=== PATIENT | female | born 1995 | race Caucasian/White ===

== ENCOUNTER 2022-03-31 08:00 | Outpatient (CLI) | payer OTHER ==
[2022-03-31 15:25] LABS: BILIRUBIN,URINE NEGATIVE (NEGATIVE); GLUCOSE, URINE (UA) NEGATIVE (NEGATIVE); KETONES,URINE (UA) NEGATIVE (NEGATIVE); LEUKOCYTE ESTERASE, URINE NEGATIVE (NEGATIVE); NITRITE,URINE NEGATIVE (NEGATIVE); OCCULT BLOOD,URINE NEGATIVE (NEGATIVE); PROTEIN,URINE NEGATIVE (NEGATIVE); UROBILINOGEN,URINE 0.2 (NORMAL) E.U./dL (NORMAL)
[2022-03-31 15:51] LABS: CLARITY,URINE CLOUDY (CLEAR)
[2022-03-31 15:52] LABS: AMORPHOUS SEDIMENT,UR Marked /LPF; BACTERIA,URINE None Seen /HPF (None Seen); RBC,URINE None Seen /HPF (0-5); SQUAMOUS EPITHELIAL CELL,UR RARE Squamous (<= Few); WBC,URINE 0-3 /HPF (0-5)
== END 2022-03-31 23:59 | disposition home or self-care (01) ==
LOC: LAB.WC 08:00
PROVIDERS: ATTEND Obstetrics & Gynecology
DX: Z32.01 Encounter for pregnancy test, result positive (principal)
CPT/HCPCS: 81001; 87086

== ENCOUNTER 2022-04-07 13:01 | Outpatient (CLI) | payer OTHER ==
--- NOTE | 2022-04-09 05:27 | Ultrasound Report ---
PROCEDURE: OB First Trimester INDICATIONS: Positive test OUTSIDE/PRIOR DATING DATA: Last menstrual period (LMP): Not available. LMP-based estimated date of delivery (BRO): Not available. First dating scan (date and location): 04/07/2022 at [facility]. Estimated date of delivery (BRO) from first dating scan: 10/05/2022.. TECHNIQUE: Real-time scanning was performed of the fetus and maternal pelvic organs, with image documentation. COMPARISON: None. FINDINGS: There is a single living intrauterine gestation. The estimated gestational age is 14 weeks 1 day based on crown-rump length. cardiac activity is present with heart rate 144 BPM. Measurement variability in dating: +/- 4 weeks by LMP, +/- 7 days by mean sac diameter (use before 6 weeks gestation if crown-rump length not able to be measured), +/- 5 days by crown-rump length (6-12 weeks gestation). Maternal organs: Ovaries are not well visualized. No adnexal mass or free fluid. IMPRESSION: 1. A single living IUP with the estimated gestational age 14 weeks 1 day, corresponding to ultrasound BRO 10/05/2022. Reviewed by: Abhilash Vargas MD on 04/07/2022 5:59 PM PDT Approved by: Abhilash Vargas MD on 04/07/2022 5:59 PM PDT Station ID: [id number]
== END 2022-04-07 13:02 | disposition home or self-care (01) ==
LOC: DI 13:01
PROVIDERS: ATTEND Obstetrics & Gynecology
DX: Z32.01 Encounter for pregnancy test, result positive (principal)

== ENCOUNTER 2022-04-08 12:28 | Outpatient (CLI) | payer OTHER ==
[2022-04-08 12:55] LABS: BASOPHILS % (AUTO) 0.3 %; EOSINOPHILS # (AUTO) 0.1 10^3/uL (0.0-0.7); EOSINOPHILS % (AUTO) 1.2 %; HCT - HEMATOCRIT 36.6 % (37.0-47.0); HGB - HEMOGLOBIN 12.4 g/dL (12.0-16.0); LYMPHOCYTES # (AUTO) 1.5 10^3/uL (1.5-3.5); LYMPHOCYTES % (AUTO) 22.6 %; MEAN CORPUSCULAR HEMOGLOBIN 30.6 pg (27.0-31.0); MEAN CORPUSCULAR HGB CONC 33.9 g/dL (32.0-36.0); MEAN CORPUSCULAR VOLUME 90.4 fL (81.0-99.0); MEAN PLATELET VOLUME 10.1 fL (7.9-10.8); MONOCYTES # (AUTO) 0.4 10^3/uL (0.0-1.0); MONOCYTES % (AUTO) 6.4 %; NEUTROPHILS # (AUTO) 4.7 10^3/uL (1.5-6.6); NEUTROPHILS % (AUTO) 69.4 %; PLT - PLATELET COUNT 230 10^3/uL (130-450); RED BLOOD COUNT 4.05 10^6/uL (4.20-5.40); RED CELL DISTRIBUTION WIDTH 13.2 % (12.0-15.0); WHITE BLOOD COUNT 6.7 x10^3/uL (4.8-10.8)
[2022-04-09 03:08] LABS: HBsAG SCREEN Negative (Negative)
[2022-04-09 04:09] LABS: RPR Non Reactive (Non Reactive)
[2022-04-09 05:12] LABS: HCV AB <0.1 s/co ratio (0.0-0.9); HIV SCREEN 4TH GENERATION Non Reactive (Non Reactive)
[2022-04-09 12:09] LABS: VARICELLA-ZOSTER AB IGG 189 index (Immune >165)
== END 2022-04-08 12:29 | disposition home or self-care (01) ==
LOC: LAB 12:28
PROVIDERS: ATTEND Obstetrics & Gynecology
DX: Z36.89 Encounter for other specified antenatal screening (principal)
CPT/HCPCS: 36415; 85025; 86592; 86762; 86787; 86803; 86850; 86900; 86901; 87340; 87389

== ENCOUNTER 2022-04-08 14:59 | Outpatient (CLI) | payer OTHER ==
[2022-04-08 23:50] LABS: CHLAMYDIA TRACHOMATIS DNA NEGATIVE (NEGATIVE); NEISSERIA GONORRHOEAE DNA NEGATIVE (NEGATIVE); TRICHOMONAS VAGINALIS DNA NEGATIVE (NEGATIVE)
== END 2022-04-08 15:00 | disposition home or self-care (01) ==
LOC: LAB 14:59
PROVIDERS: ATTEND Obstetrics & Gynecology
DX: Z34.90 Encounter for supervision of normal pregnancy, unspecified, unspecified trimester (principal); Z36.89 Encounter for other specified antenatal screening
CPT/HCPCS: 87491; 87591; 87661

== ENCOUNTER 2022-05-06 14:18 | Outpatient (CLI) | payer OTHER ==
[2022-05-11 19:07] LABS: AFP MOM 1.01 (.); AFP VALUE 45.2 ng/mL (.); DIA MOM 0.96 (.); DIA VALUE 145.91 pg/mL (.); DSR (BY AGE) 1 IN 857 (.); DSR (SECOND TRIMESTER) 1 IN 9332 (.); GEST. AGE ON COLLECTION DATE 18.3 WEEKS (.); GESTAT. AGE METHOD EDD (.); HCG MOM 1.32 (.); HCG VALUE 37440 mIU/mL (.); INSULIN DEP DIABETES No (.); MULTIPLE GESTATION No (.); OPEN SPINA BIFIDA RISK 1 IN 10000 (.); RACE Caucasian (.); RESULTS Report (.); TEST RESULTS *Screen Negative* (.); TRISOMY 18 RISK Not increased (.); UE3 MOM 1.39 (.); UE3 VALUE 2.16 ng/mL (.); WEIGHT 163 lbs (.)
== END 2022-05-06 14:19 | disposition home or self-care (01) ==
LOC: LAB 14:18
PROVIDERS: ATTEND Obstetrics & Gynecology
DX: Z34.90 Encounter for supervision of normal pregnancy, unspecified, unspecified trimester (principal)
CPT/HCPCS: 36415; 81511

== ENCOUNTER 2022-05-14 09:38 | Emergency (ER) | payer OTHER ==
--- NOTE | 2022-05-14 10:05 | ED Physician Documentation ---
PD HPI CHEST PAIN - Stated complaint Stated Complaint: CHEST PX/BACK PX - Chief complaint Chief Complaint: Cardiac - History obtained from History obtained from: Patient - History of Present Illness Timing - onset: How many hours ago (couple), Today Timing - onset during: Light activity (was sitting at desk doing computer work. Onset of left chest to shoulder pressure/aching pain. No dyspnea. No lightheaded. No recent illness. no noted injury. Called nurse line and told to come to ER.) Timing - duration: Minutes Timing - details: Abrupt onset, Still present (though much improved.) Quality: Tightness, Aching. No: Pressure Location: Left chest, Left shoulder/arm Radiation: No: Jaw, Neck, Back Improved by: No: Rest Worsened by: Movement. No: Inspiration, Palpation Associated symptoms: No: Shortness of air, Diaphoresis, Nausea, Feeling faint / dizzy, Palpitations, Cough Similar symptoms before: Has not had sx before Recently seen: Clinic (normal visits so far.) Review of Systems Constitutional: denies: Fever, Chills Nose: denies: Rhinorrhea / runny nose, Congestion Throat: denies: Sore throat Cardiac: denies: Palpitations, Pedal edema, Calf pain Respiratory: denies: Dyspnea, Cough, Wheezing GI: denies: Abdominal Pain, Nausea (not currently. Had had moderate amount earlier in .), Vomiting, Diarrhea : reports: Now EGA (19-20). denies: Dysuria, Frequency, Vaginal bleeding Skin: denies: Rash, Lesions Musculoskeletal: denies: Extremity pain, Extremity swelling Neurologic: denies: Generalized weakness, Focal weakness, Numbness, Near syncope PD PAST MEDICAL HISTORY - Past Medical History Cardiovascular: None Respiratory: None Neuro: None Endocrine/Autoimmune: None - Present Medications Home Medications: Ambulatory Orders Medication Instructions Recorded Confirmed No122/Iron/Folic Acid 1 each PO DAILY 05/14/22 05/14/22 [ Multi Tablet] - Allergies Allergies/Adverse Reactions: Allergies Allergy/AdvReac Type Severity Reaction Status Date / Time No Known Drug Allergies Allergy Verified 05/14/22 09:53 PD ED PE NORMAL - Vitals Vital signs reviewed: Yes - General General: Alert and oriented X 3, No acute distress, Well developed/nourished - HEENT HEENT: Pharynx benign - Neck Neck: Supple, no meningeal sign, No adenopathy - Cardiac Cardiac: RRR, No murmur - Respiratory Respiratory: No respiratory distress, Clear bilaterally - Abdomen Abdomen: Soft, Non tender - Female Female : Deferred - Derm Derm: Normal color, Warm and dry, No rash - Extremities Extremities: Normal ROM s pain, No edema, No calf tenderness / cord - Neuro Neuro: Alert and oriented X 3, No motor deficit, Normal speech Results - Vitals Vitals: Vital Signs - 24 hr 05/14/22 05/14/22 05/14/22 09:47 12:00 12:51 Temperature 36.5 C 37.0 C Heart Rate 78 74 75 Respiratory 16 18 20 Rate Blood Pressure 102/61 98/56 L 84/58 L O2 Saturation 100 99 100 Oxygen O2 Source Room air - EKG (time done) 09:49 Rate: Rate (enter#) (76) Rhythm: NSR [place]: Normal Intervals: Normal MI QRS: Normal Ischemia: Normal ST segments. No: ST elevation c/w ischemia, ST depression - Labs Labs: Laboratory Tests 05/14/22 05/14/22 05/14/22 10:56 10:56 10:56 WBC 6.1 RBC 3.55 L Hgb 10.9 L Hct 32.7 L MCV 92.1 MCH 30.7 MCHC 33.3 RDW 12.8 Plt Count 217 MPV 10.1 Neut # (Auto) 4.2 Lymph # (Auto) 1.3 L [place] # (Auto) 0.5 Eos # (Auto) 0.1 Baso # (Auto) 0.0 Absolute Nucleated RBC 0.00 Nucleated RBC % 0.0 Sodium 135 Potassium 3.8 Chloride 104 Carbon Dioxide 26 Anion Gap 5.0 L BUN 10 Creatinine 0.5 Estimated GFR (MDRD) 148 Glucose 71 Calcium 8.8 Total Bilirubin 0.3 AST 18 ALT 11 Alkaline Phosphatase 35 L Troponin I High Sens < 2.3 L B-Natriuretic Peptide Total Protein 6.0 L Albumin 3.0 L Globulin 3.0 Albumin/Globulin Ratio 1.0 Lipase 46 05/14/22 10:56 WBC RBC Hgb Hct MCV MCH MCHC RDW Plt Count MPV Neut # (Auto) Lymph # (Auto) [place] # (Auto) Eos # (Auto) Baso # (Auto) Absolute Nucleated RBC Nucleated RBC % Sodium Potassium Chloride Carbon Dioxide Anion Gap BUN Creatinine Estimated GFR (MDRD) Glucose Calcium Total Bilirubin AST ALT Alkaline Phosphatase Troponin I High Sens B-Natriuretic Peptide 73 Total Protein Albumin Globulin Albumin/Globulin Ratio Lipase - Rads (name of study) chest xray Radiology: Prelim report reviewed (with abd shielded: No acute heart/lung process.), See rad report PD MEDICAL DECISION MAKING - ED course Complexity details: reviewed results, considered differential (nonpleuritic left shoulher/upper chest discomfort. Perc zero. CXR and ECG okay. labs good. Presume musculoskeletal pain. ), d/w patient Departure - Departure Disposition: Home, Self Care Clinical Impression: Chest discomfort Qualifiers: Weeks of gestation: 19 weeks Qualified Code(s): Z3A.19 - 19 weeks gestation of Condition: Stable Record reviewed to determine appropriate education?: Yes Instructions: ED Chest Pain Atypical Unkn Cause Comments: Your chest x-ray, EKG, blood tests are normal without any signs of heart or lung abnormality. No signs of heart strain or muscle injury with the BNP and troponin tests. Clinically low suspicion for blood clots. You are slightly anemic but that is fairly common with . Presume the possibility of muscular injury. You can use Tylenol every 4-6 hours if needed for pains. For another week or 2 you still could use ibuprofen 2 or 3 times daily. It suggested not to use it over 20 to 22 weeks of . Potentially this could be early muscular inflammation signaling of a impending viral illness. As such if you do develop a little bit of a runny nose cough or sore throat in the next day or 2 then that could make sense. Recheck if persistent symptoms more than a couple of days or if you have increasing discomfort, trouble breathing, hurts with breathing, lightheaded or other concerns. Your blood pressure was relatively low here. I do not know what its been running overall but was just about 100s systolic. Make sure you stay well- hydrated. Discharge Date/Time: 05/14/22 12:55
[2022-05-14] MEDS ORDERED: ACETAMINOPHEN 325 MG TABLET PO STA (10:47)
[2022-05-14] MEDS ORDERED: SODIUM CHLORIDE 0.9% 1,000 ML IV STA (10:47)
[2022-05-14] MEDS ORDERED: KETOROLAC 15 MG/ML VIAL IVP STA (10:47)
[2022-05-14 11:01] LABS: BASOPHILS % (AUTO) 0.3 %; EOSINOPHILS # (AUTO) 0.1 10^3/uL (0.0-0.7); HCT - HEMATOCRIT 32.7 % (37.0-47.0); HGB - HEMOGLOBIN 10.9 g/dL (12.0-16.0); LYMPHOCYTES # (AUTO) 1.3 10^3/uL (1.5-3.5); LYMPHOCYTES % (AUTO) 21.4 %; MEAN CORPUSCULAR HEMOGLOBIN 30.7 pg (27.0-31.0); MEAN CORPUSCULAR HGB CONC 33.3 g/dL (32.0-36.0); MEAN CORPUSCULAR VOLUME 92.1 fL (81.0-99.0); MEAN PLATELET VOLUME 10.1 fL (7.9-10.8); MONOCYTES # (AUTO) 0.5 10^3/uL (0.0-1.0); MONOCYTES % (AUTO) 7.9 %; NEUTROPHILS # (AUTO) 4.2 10^3/uL (1.5-6.6); NEUTROPHILS % (AUTO) 69.1 %; PLT - PLATELET COUNT 217 10^3/uL (130-450); RED BLOOD COUNT 3.55 10^6/uL (4.20-5.40); RED CELL DISTRIBUTION WIDTH 12.8 % (12.0-15.0); WHITE BLOOD COUNT 6.1 x10^3/uL (4.8-10.8)
[2022-05-14 11:19] LABS: BILIRUBIN,TOTAL 0.3 mg/dL (0.2-1.0); CALCIUM 8.8 mg/dL (8.5-10.3); CREATININE 0.5 mg/dL (0.4-1.0); POTASSIUM 3.8 mmol/L (3.5-5.0)
--- NOTE | 2022-05-14 11:42 | XRAY Report ---
PROCEDURE: Chest 1 View X-Ray INDICATIONS: chest pain/tightness this morning. left upper. TECHNIQUE: One view of the chest was acquired. COMPARISON: None. FINDINGS: Surgical changes and devices: None. Lungs and pleura: No pleural effusions or pneumothorax. Lungs are clear. Mediastinum: Mediastinal contours appear normal. Heart size is normal. Bones and chest wall: No suspicious bony lesions. Overlying soft tissues appear unremarkable. IMPRESSION: No acute cardiopulmonary abnormality. Reviewed by: Quoc Zarco MD on 05/14/2022 11:41 AM PDT Approved by: Quoc Zarco MD on 05/14/2022 11:41 AM PDT Station ID: [id number]
[2022-05-14 12:55] VITALS: BP 84/58
== END 2022-05-14 12:55 | disposition home or self-care (01) ==
LOC: ED 09:38
DX: O99.891 Other specified diseases and conditions complicating pregnancy (principal); R07.89 Other chest pain; Z3A.19 19 weeks gestation of pregnancy
CPT/HCPCS: 36415; 71045; 80053; 83690; 83880; 84484; 85025; 93005; 96361; 96374; 99284; A9270

== ENCOUNTER 2022-05-17 10:03 | Outpatient (CLI) | payer OTHER ==
--- NOTE | 2022-05-17 11:51 | Ultrasound Report ---
PROCEDURE: OB Detailed Eval INDICATIONS: SUPERVISION OF OUTSIDE/PRIOR DATING DATA: LMP is unknown First dating scan (date and location): 04/07/2022. Estimated date of delivery (BRO) from first dating scan: 10/05/2022. TECHNIQUE: Real-time scanning was performed of the fetus, with image documentation and biometric measurements. Endovaginal scanning: Not performed COMPARISON: 04/07/2022 FINDINGS: General: A single living intrauterine gestation is present. Presentation: Variable, usually cephalic Placenta: Placental position is posterior, without previa. Amniotic fluid index: Within normal limits cm, 43rd percentile for gestational age. heart rate: 147 beats per minute. Maternal cervical canal: 3.6 cm long; normal length is 2.5 cm or more. biometrics: Biparietal diameter: 4.7 cm Head circumference: 17.5 cm Abdominal circumference: 14.1 cm Femur length: 3.2 cm Estimated gestational age from initial scan: 19 weeks and 6 days Composite gestational age from present scan: 19 weeks and 1 day Estimated weight and percentile: 307 g, 36 percentile Measurement variability in biometric dating: +/- 10 days from 12-20 weeks gestation, +/- 2 weeks from 20-30 weeks gestation, +/- 3 weeks at 30 weeks gestation or later. Anatomic survey: Neuro: Ventricles are normal at less than 10 mm. Cisterna magna is normal at 3-11 mm. Cerebellum is normal in size and morphology. Nuchal skin fold: Normal at less than 6 mm between 14 and 20 weeks gestational age. Face: Nose and lips, facial profile are normal. Spine: No evidence for spina bifida. Heart: 4-chambered heart is present, with normal ventricular outflow tracts. Diaphragm: Diaphragm is intact. Stomach: Left-sided stomach is present. Kidneys: Borderline normal left renal pelvis diameter at 4 mm. Normal is less than 5 mm in 2nd trime ster, less than 7 mm in 3rd trimester. Cord: 3 vessel cord has orthotopic insertion. Bladder: Normal in size. Extremities: All 4 extremities are visualized. IMPRESSION: Intrauterine with BRO at 10/05/2022. Sonographic biometry today is concordant, with EFW at t he 36th percentile. Borderline normal left renal pelvis diameter of 4 mm. Complete and normal routine anatomic survey. Reviewed by: Wilbur Matute MD on 05/17/2022 11:50 AM PDT Approved by: Wilbur Matute MD on 05/17/2022 11:50 AM PDT Station ID: [id number]
== END 2022-05-17 10:04 | disposition home or self-care (01) ==
LOC: DI 10:03
PROVIDERS: ATTEND Obstetrics & Gynecology
DX: Z36.89 Encounter for other specified antenatal screening (principal)

== ENCOUNTER 2022-06-04 15:43 | Outpatient (CLI) | payer OTHER ==
[2022-06-04 17:51] LABS: BILIRUBIN,URINE NEGATIVE (NEGATIVE); GLUCOSE, URINE (UA) NEGATIVE (NEGATIVE); KETONES,URINE (UA) NEGATIVE (NEGATIVE); LEUKOCYTE ESTERASE, URINE NEGATIVE (NEGATIVE); NITRITE,URINE NEGATIVE (NEGATIVE); OCCULT BLOOD,URINE NEGATIVE (NEGATIVE); PROTEIN,URINE NEGATIVE (NEGATIVE); UROBILINOGEN,URINE 0.2 (NORMAL) E.U./dL (NORMAL)
[2022-06-04 18:03] LABS: AMORPHOUS SEDIMENT,UR Moderate /LPF; BACTERIA,URINE Rare /HPF (None Seen); CLARITY,URINE SL. CLOUDY (CLEAR); RBC,URINE 0-5 /HPF (0-5); SQUAMOUS EPITHELIAL CELL,UR RARE Squamous (<= Few); WBC,URINE 0-3 /HPF (0-5)
== END 2022-06-04 15:44 | disposition home or self-care (01) ==
LOC: LAB.N 15:43
PROVIDERS: ATTEND Obstetrics & Gynecology
DX: R10.9 Unspecified abdominal pain (principal)
CPT/HCPCS: 81001; 87086

== ENCOUNTER 2022-06-23 12:50 | Emergency (ER) | payer OTHER ==
[2022-06-23 13:56] LABS: BASOPHILS % (AUTO) 0.3 %; EOSINOPHILS # (AUTO) 0.1 10^3/uL (0.0-0.7); EOSINOPHILS % (AUTO) 1.4 %; HCT - HEMATOCRIT 31.5 % (37.0-47.0); HGB - HEMOGLOBIN 10.4 g/dL (12.0-16.0); LYMPHOCYTES # (AUTO) 1.3 10^3/uL (1.5-3.5); LYMPHOCYTES % (AUTO) 19.9 %; MEAN CORPUSCULAR HEMOGLOBIN 30.1 pg (27.0-31.0); MEAN CORPUSCULAR VOLUME 91.3 fL (81.0-99.0); MEAN PLATELET VOLUME 9.8 fL (7.9-10.8); MONOCYTES # (AUTO) 0.6 10^3/uL (0.0-1.0); MONOCYTES % (AUTO) 8.9 %; NEUTROPHILS # (AUTO) 4.5 10^3/uL (1.5-6.6); NEUTROPHILS % (AUTO) 69.2 %; PLT - PLATELET COUNT 186 10^3/uL (130-450); RED BLOOD COUNT 3.45 10^6/uL (4.20-5.40); RED CELL DISTRIBUTION WIDTH 12.6 % (12.0-15.0); WHITE BLOOD COUNT 6.5 x10^3/uL (4.8-10.8)
[2022-06-23 14:10] LABS: ALBUMIN 3.1 g/dL (3.2-5.5); BILIRUBIN,TOTAL 0.4 mg/dL (0.2-1.0); CALCIUM 8.9 mg/dL (8.5-10.3); CREATININE 0.4 mg/dL (0.4-1.0); TOTAL PROTEIN 6.2 g/dL (6.7-8.2)
--- NOTE | 2022-06-23 16:05 | Ultrasound Report ---
PROCEDURE: Abdomen Limited INDICATIONS: right upper abd pain TECHNIQUE: Real-time scanning was performed of the abdominal and retroperitoneal organs, with image documentatio n. COMPARISON: None. FINDINGS: Liver: Liver is normal in size and homogeneous in echotexture. Gallbladder: No stones. Gallbladder is contracted with wall thickness measuring 2.6 mm. Biliary ducts: Intrahepatic bile ducts are non-dilated. Extrahepatic bile duct caliber measures 3 m m. Normal is 6-7 mm or less in diameter, or 10 mm or less post-cholecystectomy. Pancreas: Visualized portions of the pancreas are sonographically normal. Kidneys: Right kidney measures 10.7 cm long. No hydronephrosis or nephrolithiasis. No solid masses . Miscellaneous: No free abdominal fluid. IMPRESSION: Gallbladder is unremarkable. Reviewed by: Elham Tillman MD on 06/23/2022 4:04 PM PST Approved by: Elham Tillman MD on 06/23/2022 4:04 PM PST Station ID: [id number]
--- NOTE | 2022-06-23 16:30 | ED Physician Documentation ---
PD HPI ABD PAIN - Stated complaint Stated Complaint: 25 WEEKS/BACK PX - Chief complaint Chief Complaint: Abd Pain - History obtained from History obtained from: Patient - History of Present Illness Timing - onset: How many weeks ago (few weeks of pain RUQ abd, worse with movement, palpation. no change with eating nor simpoe breathing. Has increased in intensity but staying same location the past few days.) Timing - details: Gradual onset, Waxing and waning Quality: Aching, Pain Location: RUQ (she feels that it is a pain on surface or soft tissue and not a deep pain. no change with eating, but does worsen with movement and palpation.) Radiation: No: Chest, Right flank, Upper back Improved by: Laying still. No: Eating Worsened by: Moving, Palpation. No: Eating Associated symptoms: Other (no rash nor sores.). No: Fever, Nausea, Vomiting, Dysuria, Loss of appetite Similar symptoms before: No diagnosis (had similar symptoms with first for last couple months of it. felt to be muscular or such. Normal labs at that time.) Recently seen: Clinic (OB clinic with normal visits.) Review of Systems Constitutional: denies: Fever, Chills Nose: denies: Rhinorrhea / runny nose, Congestion Throat: denies: Sore throat Respiratory: denies: Cough GI: reports: Abdominal Pain. denies: Nausea, Vomiting, Diarrhea : reports: Now EGA (25 weeks, with normal course so far.) Skin: denies: Rash, Lesions Musculoskeletal: denies: Extremity swelling Neurologic: denies: Focal weakness, Numbness PD PAST MEDICAL HISTORY - Past Medical History Cardiovascular: None Respiratory: None Neuro: None Endocrine/Autoimmune: None - Present Medications Home Medications: Ambulatory Orders Medication Instructions Recorded Confirmed No122/Iron/Folic Acid 1 each PO DAILY 05/14/22 05/14/22 [ Multi Tablet] Lidocaine Patch 5% [Lidoderm Patch] 1 patch TOP DAILY PRN #10 patch 06/23/22 - Allergies Allergies/Adverse Reactions: Allergies Allergy/AdvReac Type Severity Reaction Status Date / Time No Known Drug Allergies Allergy Verified 06/23/22 12:59 PD ED PE NORMAL - Vitals Vital signs reviewed: Yes - General General: Alert and oriented X 3, No acute distress, Well developed/nourished - Neck Neck: Supple, no meningeal sign, No adenopathy - Cardiac Cardiac: RRR, No murmur - Respiratory Respiratory: Clear bilaterally - Abdomen Abdomen: Normal bowel sounds, Soft, No organomegaly, Other (abd gravid with fundus palpable about 5 cm above umbilicus. not tender. the right upper abd is tender to light palpation in soft tissue. no hernia felt. no skin sores/mass. deeper palpation not tender. Lower costal margin without tenderness of cartilage. ) - Back Back: No CVA TTP - Derm Derm: Normal color, No rash - Extremities Extremities: No edema, No calf tenderness / cord - Neuro Neuro: Alert and oriented X 3, No motor deficit Results - Vitals Vitals: Vital Signs - 24 hr 06/23/22 06/23/22 12:57 17:57 Temperature 36.2 C L Heart Rate 75 72 Respiratory 14 14 Rate Blood Pressure 104/69 110/70 O2 Saturation 99 99 Oxygen O2 Source Room air - Labs Labs: Laboratory Tests 06/23/22 06/23/22 13:49 13:49 WBC 6.5 RBC 3.45 L Hgb 10.4 L Hct 31.5 L MCV 91.3 MCH 30.1 MCHC 33.0 RDW 12.6 Plt Count 186 MPV 9.8 Neut # (Auto) 4.5 Lymph # (Auto) 1.3 L [place] # (Auto) 0.6 Eos # (Auto) 0.1 Baso # (Auto) 0.0 Absolute Nucleated RBC 0.00 Nucleated RBC % 0.0 Sodium 135 Potassium 4.0 Chloride 100 L Carbon Dioxide 26 Anion Gap 9.0 BUN 12 Creatinine 0.4 Estimated GFR (MDRD) 191 Glucose 88 Calcium 8.9 Total Bilirubin 0.4 AST 19 ALT 11 Alkaline Phosphatase 37 L Total Protein 6.2 L Albumin 3.1 L Globulin 3.1 Albumin/Globulin Ratio 1.0 Lipase 52 H - Rads (name of study) RUQ abd U/S Radiology: Prelim report reviewed (normal exam. ), See rad report PD MEDICAL DECISION MAKING - ED course Complexity details: reviewed results, considered differential (eval of RUQ structures with labs and U/S without acute findings (lipase minimally above normal). Exam more c/w myofascial tenderness than abd cavity tender. Can try local treatment with injection trigger point at right upper abd rectus muscle, topical lido and tylenol. ), d/w patient Departure - Departure Disposition: 01 Home, Self Care Clinical Impression: Strain of fascia of abdomen, Upper abdominal pain Condition: Stable Record reviewed to determine appropriate education?: Yes Follow-Up: Sudarshan García MD [Primary Care Provider] - Prescriptions: Lidocaine Patch 5% [Lidoderm Patch] 1 patch TOP DAILY PRN #10 patch PRN Reason: pain Comments: Your basic blood tests looking at liver and kidney function pancreas are essentially normal. Ultrasound is normal for the structures in the area. This does sound like a myofascial irritation through the upper abdominal muscle. We can try treating this with a combination of Tylenol 500 mg 4 times daily for pain. This is okay in . We can also try lidocaine patches locally to the area as well. This is also okay in . I did do an injection of some numbing medicine and anti-inflammatory in the area and see if that will help of the next few days as well. Follow-up with your PHOTOGRAPH ENLARGER at next planned appointment. Return if worsening symptoms. I sent your prescription to your preferred pharmacy. Discharge Date/Time: 06/23/22 17:58
[2022-06-23] MEDS ORDERED: lidocaine 1% 20 ML MDV SUBQ ONE (16:54)
[2022-06-23] MEDS ORDERED: ACETAMINOPHEN 325 MG TABLET PO STA (16:54)
[2022-06-23] MEDS ORDERED: TRIAMCINOLONE 40 MG/ML VIAL MC STA (16:54)
[2022-06-23] MEDS ORDERED: LIDOCAINE PATCH 5% TOP STA (16:56)
[2022-06-23 17:58] VITALS: BP 110/70
== END 2022-06-23 17:58 | disposition home or self-care (01) ==
LOC: ED 12:50
DX: O9A.212 Injury, poisoning and certain other consequences of external causes complicating pregnancy, second trimester (principal); S39.011A Strain of muscle, fascia and tendon of abdomen, initial encounter; X58.XXXA Exposure to other specified factors, initial encounter; Z3A.25 25 weeks gestation of pregnancy
CPT/HCPCS: 36415; 76705; 80053; 83690; 85025; 99284; A9270

== ENCOUNTER 2022-07-22 13:07 | Outpatient (CLI) | payer OTHER ==
[2022-07-22 14:16] LABS: HCT - HEMATOCRIT 31.3 % (37.0-47.0); HGB - HEMOGLOBIN 10.3 g/dL (12.0-16.0); MEAN CORPUSCULAR HEMOGLOBIN 29.1 pg (27.0-31.0); MEAN CORPUSCULAR HGB CONC 32.9 g/dL (32.0-36.0); MEAN CORPUSCULAR VOLUME 88.4 fL (81.0-99.0); MEAN PLATELET VOLUME 9.8 fL (7.9-10.8); RED BLOOD COUNT 3.54 10^6/uL (4.20-5.40); RED CELL DISTRIBUTION WIDTH 12.4 % (12.0-15.0); WHITE BLOOD COUNT 6.4 x10^3/uL (4.8-10.8)
== END 2022-07-22 13:08 | disposition home or self-care (01) ==
LOC: LAB 13:07
PROVIDERS: ATTEND Obstetrics & Gynecology
DX: Z34.90 Encounter for supervision of normal pregnancy, unspecified, unspecified trimester (principal)
CPT/HCPCS: 36415; 82950; 85027

== ENCOUNTER 2022-07-28 09:33 | Outpatient (CLI) | payer OTHER ==
[2022-07-28 10:15] LABS: GTT GLUCOSE,FASTING 90 mg/dL (70-100)
== END 2022-07-28 09:34 | disposition home or self-care (01) ==
LOC: LAB 09:33
PROVIDERS: ATTEND Obstetrics & Gynecology
DX: O99.810 Abnormal glucose complicating pregnancy (principal)
CPT/HCPCS: 36415; 82951; 82952

== ENCOUNTER 2022-08-12 16:09 | Outpatient (CLI) | payer OTHER ==
[2022-08-13 21:58] LABS: BACTERIAL VAGINOSIS DNA NEGATIVE (NEGATIVE); CANDIDA GLABRATA DNA NEGATIVE (NEGATIVE); CANDIDA GROUP DNA NEGATIVE (NEGATIVE); CANDIDA KRUSEI DNA NEGATIVE (NEGATIVE); TRICHOMONAS VAGINALIS DNA NEGATIVE (NEGATIVE)
== END 2022-08-12 23:59 | disposition home or self-care (01) ==
LOC: LAB.WC 16:09
PROVIDERS: ATTEND Obstetrics & Gynecology
DX: N89.8 Other specified noninflammatory disorders of vagina (principal)
CPT/HCPCS: 81514

== ENCOUNTER 2022-09-09 13:30 | Outpatient (CLI) | payer OTHER | END 2022-09-09 23:59 | disposition home or self-care (01) | LOC: LAB.WC 13:30 | PROVIDERS: ATTEND Obstetrics & Gynecology | DX: Z36.85 Encounter for antenatal screening for Streptococcus B (principal) | CPT/HCPCS: 87797 ==

== ENCOUNTER 2022-10-03 02:47 | Inpatient (IN) | payer OTHER ==
[2022-10-03 03:50] LABS: RUPTURE OF MEMBRANES PLUS NEGATIVE (NEGATIVE)
[2022-10-03] MEDS ORDERED: OXYTOCIN 10 UNIT/ML VIAL IM PRN (05:05)
[2022-10-03] MEDS ORDERED: miSOPROStoL 200 MCG TABLET PR PRN (05:05)
[2022-10-03] MEDS ORDERED: hydrALAZINE INJ 20 MG/ML VIAL IVP PRN ×2 (05:05)
[2022-10-03] MEDS ORDERED: TERBUTALINE 1 MG/ML VIAL SUBQ PRN (05:05)
[2022-10-03] MEDS ORDERED: NIFEdipine 10 MG CAPSULE PO PRN (05:05)
[2022-10-03] MEDS ORDERED: miSOPROStoL 200 MCG TABLET BC PRN (05:05)
[2022-10-03] MEDS ORDERED: SODIUM CHLORIDE FLUSH 0.9% 10 ML SYRINGE IVP PRN (05:05)
[2022-10-03] MEDS ORDERED: lidocaine 1% 20 ML MDV ID PRN (05:05)
[2022-10-03] MEDS ORDERED: TRANEXAMIC ACID IN NACL 1,000 MG/100 ML BAG IV PRN (05:05)
[2022-10-03] MEDS ORDERED: METHYLERGONOVINE 0.2 MG/ML VIAL IM PRN (05:05)
[2022-10-03] MEDS ORDERED: OXYTOCIN/SODIUM CHLORIDE 500 ML IV PRN (05:05)
[2022-10-03] MEDS ORDERED: LABETALOL 20 MG/4 ML SYRINGE IVP PRN ×3 (05:05)
[2022-10-03] MEDS ORDERED: CARBOPROST TROMETHAMINE 250 MCG/ML AMP IM PRN (05:05)
[2022-10-03] MEDS ORDERED: fentaNYL 100 MCG/2 ML VIAL IVP PRN (05:05)
--- NOTE | 2022-10-03 05:09 | HISTORY & PHYSICAL EXAMINATION ---
Admit History - Visit Reason Visit Reason: Contractions - : 4 Parity: 1 : 2 Risk/History: positive: None Complications This : positive: None Smoking Status: Never smoker - Mother's Labs Mother's Blood Type: positive: A Mother's RH: positive: Positive GBS: positive: Group B Step Negative Rubella Status: positive: Immune - Other Maternal History Other Maternal History: HPI: 26-year-old -0-2-1 at 39 weeks 5 days gestation. She has good movement. Did have a small amount of leaking. Now chela regularly every few minutes. No HARMON/BV or RUQP. No vaginal bleeding. Denies nausea and vomiting. Denies urinary urgency or dysuria. All other symptoms reviewed and were negative except per HPI. Course LMP: Unknown BRO by LMP: Unknown Initial U/S: 04/07/22, 14 weeks 1 day. FINAL BRO: 10/05/22 Size less than dates: Improved. EFW previously ordered. Ultrasound scheduled 10/05/2022 History of depression: Sertraline restarted. Plan for 1 week at 50 mg and go up to 100 mg. Pre- Weight:157.8 BMI: 27.18 A pos/Rubella immune VZV: immune Genetic testin05/06/22 QUAD negative FAS: 307g, 36th%ile, 3VC, Placenta posterior w/o previa, STEFANY WNL Glucola- 1HR- 153 3HR- 90 140, 139, 91 Influenza: 05/06/2022 TDAP 07/29/2022 COVID: Vaccinated x2 GBS @ 36.2 wks-Negative HSV: Denies in self or partner Breast pump Rx 07/29/2022 MOD: pp contraception: Mirena, Confirmed third trimester pap:12/04/2019 Initial GC/CT: negative PMH Fibromyalgia PSH Tonsillectomy: 2018 [place] teeth: 2014 Deviated septum repair: 2017 OB History -0-2-1 1. 09/2019: Spontaneous 11/2019: Spontaneous 3: 03/02/2021, 39 weeks 3 days, , 3407 5 g, female SH Denies tobacco, alcohol, drugs Family History Mother: Weight disorder, arthritis, hypertension, mental health issues Father: Arthritis, mental health issues, hypertension Maternal grandfather: Colon cancer Paternal grandfather: Diabetes, pancreatic cancer Allergies No known drug allergies Medications Sertraline 100 mg daily vitamins Physical exam: General: Alert, oriented, no acute distress Head: Normal cephalic atraumatic Eyes: PERRLA, extraocular motions intact. Respiratory: Normal rate of respiration. No accessory muscle use, normal respiratory effort. Cardiovascular: Regular rate and rhythm Abdomen: Gravid, nontender, nondistended Extremities: Normal range of motion Neuro: Oriented x3. Normal movements Psych: Appropriate mood and affect. Normal judgment and insight SVE: 4/50/-2 FHT: 140 beats per baseline, moderate variability, accelerations present, no decelerations. [place]: Every 3 to 5 minutes Plan 26-year-old -0-2-1 at 39 weeks 5 days gestation admitted for term labor 1. Term labor -Admit to L&D, type screen and CBC, epidural at patient's request. -Anticipate amniotomy. 2. 39 weeks gestation 3. History of depression: - patient started sertraline recently. Will monitor . Meds/Allgy - Home Medications Home Medications: Ambulatory Orders Medication Instructions Recorded Confirmed No122/Iron/Folic Acid 1 each PO DAILY 05/14/22 05/14/22 [ Multi Tablet] Lidocaine Patch 5% [Lidoderm Patch] 1 patch TOP DAILY PRN #10 patch 06/23/22 - Allergies Allergies/Adverse Reactions: Allergies Allergy/AdvReac Type Severity Reaction Status Date / Time No Known Drug Allergies Allergy Verified 06/23/22 12:59 Physical - Abdominal Exam Vital Signs: Temp Pulse Resp BP Pulse Ox O2 Flow Rate 98.4 F 58 L 16 118/81 H 10/03/22 03:03 10/03/22 03:03 10/03/22 03:03 10/03/22 03:03
[2022-10-03] MEDS ORDERED: LACTATED RINGERS 1,000 ML IV SCH ×2 (06:00→10:00)
[2022-10-03] MEDS ORDERED: SODIUM CHLORIDE FLUSH 0.9% 10 ML SYRINGE IVP SCH (06:00)
[2022-10-03 06:20] LABS: BASOPHILS % (AUTO) 0.1 %; EOSINOPHILS % (AUTO) 0.3 %; HCT - HEMATOCRIT 32.2 % (37.0-47.0); HGB - HEMOGLOBIN 10.1 g/dL (12.0-16.0); LYMPHOCYTES # (AUTO) 1.7 10^3/uL (1.5-3.5); LYMPHOCYTES % (AUTO) 22.5 %; MEAN CORPUSCULAR HEMOGLOBIN 26.1 pg (27.0-31.0); MEAN CORPUSCULAR HGB CONC 31.4 g/dL (32.0-36.0); MEAN CORPUSCULAR VOLUME 83.2 fL (81.0-99.0); MEAN PLATELET VOLUME 10.8 fL (7.9-10.8); MONOCYTES # (AUTO) 0.7 10^3/uL (0.0-1.0); MONOCYTES % (AUTO) 9.9 %; NEUTROPHILS % (AUTO) 66.7 %; PLT - PLATELET COUNT 196 10^3/uL (130-450); RED BLOOD COUNT 3.87 10^6/uL (4.20-5.40); RED CELL DISTRIBUTION WIDTH 16.1 % (12.0-15.0); WHITE BLOOD COUNT 7.5 x10^3/uL (4.8-10.8)
--- NOTE | 2022-10-03 06:41 | PROVIDER PROGRESS NOTE ---
Labor Progress Note - Uterine Monitoring Uterine Monitoring Mode: positive: External toco, Palpation Contraction Frequency (min/apart): 3-5 Contraction Intensity: positive: Moderate to strong Uterine Resting Tone: positive: Soft - Monitoring Monitor Mode: positive: External ultrasound Heart Rate Baseline: 130 Heart Rate Variability: positive: Moderate (6-25 bmp) Accelerations: positive: Present, 15x15 Decelerations: positive: None Strip Review: positive: Category I - Vaginal Exam Dilation (in cm): 5 Effacement (%): 80 Station: -1 Cervical Position: Midposition - Labor Progress Note Labor Progress Note/Additional Text: /-1. Patient consented to amniotomy which was performed a small amount of moderate meconium stained fluid. Continues to be category 1. Will notify pediatrics. Nitrous oxide for pain control currently.
[2022-10-03] MEDS ORDERED: ONDANSETRON 4 MG/2 ML VIAL IVP PRN (06:44)
[2022-10-03] MEDS ORDERED: ROPIVACAINE 0.2% 200 MG/100 ML BAG EP ONE (07:45)
[2022-10-03] MEDS ORDERED: fentaNYL 100 MCG/2 ML VIAL ONE (08:35)
[2022-10-03] MEDS ORDERED: SODIUM CHLORIDE 0.9% 10 ML VIAL IVP ONE (08:36)
[2022-10-03] MEDS ORDERED: NALOXONE 0.4 MG/ML VIAL IVP PRN (08:52)
[2022-10-03] MEDS ORDERED: ePHEDrine 50 MG/ML VIAL IVP PRN (08:52)
[2022-10-03] MEDS ORDERED: ROPIVACAINE 0.2% 200 MG/100 ML BAG EP PRN (08:52)
--- NOTE | 2022-10-03 09:27 | ANESTHESIA ---
Pre-Anesthesia VS, & Labs - Diagnosis active labor - Procedure vaginal delivery Vital Signs: Temp Pulse Resp BP Pulse Ox O2 Flow Rate 36.9 C 59 L 20 118/81 H 99 10/03/22 05:27 10/03/22 05:27 10/03/22 05:27 10/03/22 05:27 10/03/22 02:59 Height: 5 ft 4 in Weight (kg): 80.739 kg Body Mass Index: 30.5 BMI Classification: Obese - NPO Other (clear liquids, labor) - Is Patient ?: Yes - Lab Results Current Lab Results: Laboratory Tests 10/03/22 05:58: WBC 7.5, RBC 3.87 L, Hgb 10.1 L, Hct 32.2 L, MCV 83.2, MCH 26.1 L, MCHC 31.4 L, RDW 16.1 H, Plt Count 196, MPV 10.8, Neut # (Auto) 5.0, Lymph # (Auto) 1.7, [place] # (Auto) 0.7, Eos # (Auto) 0.0, Baso # (Auto) 0.0, Absolute Nucleated RBC 0.00, Nucleated RBC % 0.0 10/03/22 05:58: Blood Type A POSITIVE, Antibody Screen NEGATIVE Lab results reviewed: Yes Fish Bones: 10/03/22 05:58 Home Medications and Allergies Active Medications Carboprost Tromethamine (Carboprost Tromethamine 250 Mcg/Ml Amp) 250 mcg IM .ONCE PRN PRN Reason: Hemorrhage Ephedrine Sulfate (Ephedrine 50 Mg/Ml Vial) 5 mg IVP Q5M PRN PRN Reason: For SBP<100;give until SBP>100 Fentanyl (Fentanyl 100 Mcg/2 Ml Vial) 50 mcg IVP Q1H PRN PRN Reason: Severe Pain (score 7-10) Hydralazine HCl (Hydralazine Inj 20 Mg/Ml Vial) 10 mg IVP .ONCE PRN; Protocol PRN Reason: SBP> or= 160 OR DBP> or= 110 Hydralazine HCl (Hydralazine Inj 20 Mg/Ml Vial) 5 - 10 mg IVP Q20M PRN; [place] col PRN Reason: SBP> or= 160 OR DBP> or= 110 Oxytocin/Sodium Chloride (Pitocin/Sodium Chloride) 500 mls @ 999 mls/hr IV PRN PRN; Protocol PRN Reason: POST- HEMORR PREVENTION Tranexamic Acid (Tranexamic 1,000 Mg/100ml-Nacl) 1,000 mg in 100 mls @ 600 mls/hr IV Q30M PRN PRN Reason: EBL >1200mL and within 3hr Lactated Ringer's (Lr) 1,000 mls @ 125 mls/hr IV .Q8H CRISTY Last Infusion: 10/03/22 08:40 Dose: 125 mls/hr Ropivacaine (Naropin 0.2%) 200 mg in 100 mls @ 0 mls/hr EP PRN PRN; Protocol PRN Reason: PAIN Labetalol HCl (Labetalol 20 Mg/4 Ml Syringe) 20 mg IVP .ONCE PRN; Protocol PRN Reason: SBP> or= 160 OR DBP> or= 110 Labetalol HCl (Labetalol 20 Mg/4 Ml Syringe) 20 - 80 mg IVP Q10M PRN; Protocol PRN Reason: SBP> or= 160 OR DBP> or= 110 Labetalol HCl (Labetalol 20 Mg/4 Ml Syringe) 20 - 40 mg IVP Q10M PRN; Protocol PRN Reason: SBP> or= 160 OR DBP> or= 110 Lidocaine HCl (Lidocaine 1% 20 Ml Mdv) 20 ml ID .ONCE PRN PRN Reason: PERINEAL REPAIR Stop: 10/06/22 05:05 Methylergonovine Maleate (Methylergonovine 0.2 Mg/Ml Vial) 0.2 mg IM .ONCE PRN PRN Reason: Hemorrhage Misoprostol (Misoprostol 200 Mcg Tablet) 600 mcg BC .ONCE PRN PRN Reason: Hemorrhage Misoprostol (Misoprostol 200 Mcg Tablet) 800 mcg [place] .ONCE PRN PRN Reason: Hemorrhage Naloxone HCl (Naloxone 0.4 Mg/Ml Vial) 0.1 mg IVP Q2M PRN PRN Reason: RR<8 Nifedipine (Nifedipine 10 Mg Capsule) 10 - 20 mg PO Q20M PRN; Protocol PRN Reason: SBP> or= 160 OR DBP> or= 110 Ondansetron HCl (Ondansetron 4 Mg/2 Ml Vial) 4 mg IVP Q6HR PRN PRN Reason: Nausea / Vomiting Last Admin: 10/03/22 06:51 Dose: 4 mg Oxytocin (Oxytocin 10 Unit/Ml Vial) 10 unit IM .ONCE PRN PRN Reason: Step One if no IV access. Sodium Chloride (Sodium Chloride Flush 0.9% 10 Ml Syringe) 10 ml IVP Q8H CRISTY Sodium Chloride (Sodium Chloride Flush 0.9% 10 Ml Syringe) 10 ml IVP PRN PRN PRN Reason: NEEDED PER PROVIDER ORDERS Terbutaline Sulfate (Terbutaline 1 Mg/Ml Vial) 0.25 mg SUBQ .ONCE PRN PRN Reason: Tachystole No122/Iron/Folic Acid [ Multi Tablet] 1 each PO DAILY 05/14/22 Allergies/Adverse Reactions: Allergies Allergy/AdvReac Type Severity Reaction Status Date / Time No Known Drug Allergies Allergy Verified 06/23/22 12:59 Anes History & Medical History - Anesthetic History Anesthesia Complications: reports: No previous complications - Medical History Cardiovascular: reports: None Pulmonary: reports: None Gastrointestinal: reports: GERD Urinary: reports: None Neuro: reports: None Musculoskeletal: reports: None Endocrine/Autoimmune: reports: None Blood Disorders: reports: None Skin: reports: None Smoking Status: Never smoker Psychosocial: reports: No issues indicated History of Cancer?: No - Obstetrical History : 4 Parity: 1 Events: reports: None Complications: reports: None Exam General: Alert, Oriented x3, Cooperative, No acute distress Dental: WNL Mouth Openin Fingerbreadth Neck Mobility: Normal Mallampati classification: II Thyromental Distance: 4-6 cm Mental/Cognitive Status: Alert/Oriented X3, Normal for patient Plan Anesthesia Type: Epidural Consent for Procedure(s) Verified and Reviewed: Yes Code Status: Attempt Resuscitation ASA classification: 2-Mild systemic disease Is this case an emergency?: No
[2022-10-03] MEDS ORDERED: SIMETHICONE CHEW 80 MG TABLET PO PRN (09:56)
--- NOTE | 2022-10-03 09:56 | DELIVERY NOTE ---
Delivery Note - Labor Labor: positive: Spontaneous, Augmented by ARM - Infant Delivery Method Delivery Method: positive: Spontaneous vaginal delivery - Presentation Presentation: positive: AVI - right occiput anterior - Nuchal Cord Nuchal Cord: positive: None - Anesthetic Anesthetic Type: - Amniotic Fluid Description Amniotic Fluid Description: positive: Moderate meconium - Laceration Laceration: positive: None - Delivery Outcome Delivery Outcome: positive: Livebirth - : positive: Placed in direct skin contact with mother, Bulb syringe sex: positive: Female - Cord Cord: positive: 3 vessels - Placenta Placenta: positive: Intact - Estimated Blood Loss Estimated Blood Loss (in cc): 300 - Post Delivery Events Post Delivery Events: positive: No post delivery events - Delivery Comments (Free Text/Narrative) Delivery Comments (Free Text/Narrative): Preoperative Diagnoses 39 weeks gestation Term labor Postoperative Diagnoses Same Delivery of live handy Delivery Summary: Patient was placed in the dorsal lithotomy position. Upon maternal pushing the head was delivered atraumatically followed by the anterior shoulder, posterior shoulder, then the remainder of the 's body. A female infant was delivered with APGARS of 8 at 1 minute and 9 at 5 minutes. The infant was placed on its mother's chest . After the cord finished pulsating, the umbilical cord was clamped times two and cut. The placenta delivered intact with three vessel cord. Placenta was not sent to pathology. Thirty units of Pitocin were added to the IV fluid and allowed to run freely. Uterine massage was performed until uterus was deemed firm. Upon inspection of the perineum, vagina and cervix were intact and patient was hemostatic. Uterus again massaged and found to be firm. Needle and sponge counts were correct. Patient was stable and allowed to recover in L&D room. Infant was stable and remained in room with mother. weight is pending at this time.
[2022-10-03] MEDS: IBUPROFEN 600 MG TABLET PO SCH ×3 (11:43→22:58)
[2022-10-03] MEDS: ACETAMINOPHEN 500 MG TABLET PO SCH ×2 (15:57→23:46)
[2022-10-03] MEDS: DOCUSATE SODIUM 100 MG CAPSULE PO PRN (20:08)
[2022-10-04] MEDS: IBUPROFEN 600 MG TABLET PO SCH ×2 (04:53→11:20)
[2022-10-04] MEDS: ACETAMINOPHEN 500 MG TABLET PO SCH (08:03)
[2022-10-04] MEDS: DOCUSATE SODIUM 100 MG CAPSULE PO PRN (09:08)
--- NOTE | 2022-10-04 12:26 | Discharge Plan ---
Discharge Plan Problem Reviewed?: Yes Disposition: Home, Self Care Condition: Good Diet: Regular Activity Restrictions: Activity as Tolerated (Pelvic rest until bleeding stops) Shower Restrictions: No Driving Restrictions: No Weight Bearing: Full Weight Instruction Topics: Vaginal After, Depression , No Smoking: If you smoke, Please STOP! Call for help. Follow-up with: Sudarshan García MD [Provider Admit Priv/Credential] -
--- NOTE | 2022-10-04 12:34 | DISCHARGE SUMMARY ---
Discharge Summary Admit Date: 10/03/22 Discharge Date: 10/04/22 Discharging Provider: Julia Proctor DO Code Status: Attempt Resuscitation Condition at Discharge: Good Discharge Disposition: 01 Home, Self Care Discharge Facility Name: [facility] - DIAGNOSES Admission Diagnoses: 26yo admitted 10/03 at 39.5w in active labor - HPI History of Present Illness: 26yo admitted 10/03 at 39.5w in active labor. AROM performed, meconium fluid noted. She progressed to 10cm. Uncomplicated , see delivery note. Recovering appropriately . well. Mood is good, she recently started sertaline and will continue. Feels ready to go home PPD#1. and depression precautions reviewed. - HOSPITAL COURSE Hospital Course: 26yo admitted 10/03 at 39.5w in active labor. AROM performed, meconium fluid noted. She progressed to 10cm. Uncomplicated , see delivery note. Recovering appropriately . well. Mood is good, she recently started sertaline and will continue. Feels ready to go home PPD#1. and depression precautions reviewed. - ALLERGIES Allergies/Adverse Reactions: Allergies Allergy/AdvReac Type Severity Reaction Status Date / Time No Known Drug Allergies Allergy Verified 06/23/22 12:59 - MEDICATIONS Home Medications: Ambulatory Orders Medication Instructions Recorded Confirmed No122/Iron/Folic Acid 1 each PO DAILY 05/14/22 05/14/22 [ Multi Tablet] Lidocaine Patch 5% [Lidoderm Patch] 1 patch TOP DAILY PRN #10 patch 06/23/22 - PHYSICAL EXAM AT DISCHARGE General Appearance: positive: No acute distress Eyes Bilateral: positive: EOMI Respiratory: positive: No respiratory distress Abdomen: positive: Non-tender Skin: positive: Color nml Extremities: positive: Non-tender Neurologic/Psychiatric: positive: Oriented x3 - LABS Result Diagrams: 10/03/22 05:58 - QUALITY (Female Hip Fx Only) Was patient sent home on osteoporosis medication?: No - FOLLOW UP Follow Up: 2w - TIME SPENT Time Spent in Discharge (Minutes): 30
[2022-10-04 12:52] VITALS: BP 104/62
--- NOTE | 2022-10-04 14:30 | Labor Flowsheet ---
Labor Flowsheet Datetime Report Generated by CPN: 10/04/2022 14:30 Datetime: 10/04/2022 12:41 VITAL SIGNS NBP Sys/[place]/Mean (mmHg): 104 : 62 : 72 Pulse: 64 Datetime: 10/03/2022 11:02 Epidural Procedure Other: Cath Removed; Cath Intact Anesthesia Comments: black tip intact Datetime: 10/03/2022 10:23 Communication Comments: continue Datetime: 10/03/2022 10:02 Temperature (C): 36.5 Datetime: 10/03/2022 09:47 Medication Comments: Pit bolus started Datetime: 10/03/2022 09:44 UTERINE ACTIVITY Monitor Mode: External Frequency (min): 2-3 Quality: Moderate Duration (sec): 60-80 Pattern: Normal: <= 5 Contractions in 10 Minutes Resting Tone (Palpate): Relaxed ASSESSMENT A Monitor Mode: Telemetry FHR Baseline Rate : 135 Variability: Moderate 6-25 bpm Accelerations: 15X15 Decelerations: Early; Variable Category: Category II Datetime: 10/03/2022 09:35 SpO2 (%): 100 LaborFlag: Labor Datetime: 10/03/2022 09:32 VAGINAL EXAM Dilatation (cm): 10.0 Effacement (%): 100 Station: 3 Exam by: RN Abiola Datetime: 10/03/2022 09:07 Monitor Interventions for UA: [place] Adjusted Monitor Interventions for FHR: Ultrasound Adjusted Datetime: 10/03/2022 09:03 PATIENT CARE Patient Position/Activity: Left Lateral Patient Care Comments: peanut ball Datetime: 10/03/2022 09:01 I/O Interventions: [place] Cath Inserted Datetime: 10/03/2022 08:45 Stage of : Labor PAIN Pain Scale: 4 Pain Presence: Intermittent Pain Type: Contraction Pain Location: Abdomen Pain Goal: 7 Pain Relief Measures: Epidural Given Pain Coping: Talking Through Contractions Datetime: 10/03/2022 08:20 ANESTHESIA Epidural Procedure: Completed Datetime: 10/03/2022 08:10 PROCEDURE TIME OUT Procedure Type: Time out MARÍA ELENA Datetime: 10/03/2022 07:19 Pain Assessment Comments: Pt continues to use Nitrous for pain control Datetime: 10/03/2022 07:04 COMMUNICATION Communication: RN at Bedside; Report Given to @ Nadine RN Datetime: 10/03/2022 06:55 MEDICATIONS Antiemetics/Antacids: Zofran (mg) @ 4 Datetime: 10/03/2022 06:27 Membranes Ruptured Date/Time: 10/03/2022 06:27 Membranes Rupture Method: Artificial Amniotic Fluid Color: moderate mec Amniotic Fluid Amount: Small Membrane Comments: moderate mec Datetime: 10/03/2022 06:26 Membrane Status: Intact Datetime: 10/03/2022 06:20 Respirations: 16 Temperature Route: Oral
--- NOTE | 2022-10-06 13:13 | PROCEDURE REPORT ---
- HPI Diagnosis/Indication for NST: Decreased movement Current EDU 10/06/22 Gestation 39 Weeks and 4 Days 4 Para 1 Vital Signs Temperature 98.1 F 10/03/22 02:59 Heart Rate 68 10/03/22 02:59 Respiratory Rate 18 10/03/22 02:59 Blood Pressure 118/81 H 10/03/22 02:59 O2 Saturation 99 10/03/22 02:59 Temperature 98.1 F 10/04/22 12:50 Heart Rate 64 10/04/22 12:50 Respiratory Rate 16 10/04/22 12:50 Blood Pressure 104/62 10/04/22 12:50 O2 Saturation 98 10/04/22 12:50 If not protocol: Oxygen Flow, liters/minute - NST Procedure NST Procedure Start Date 10/03/22 Start Time 04:07 Stop Time 04:47 Vibroacoustic Stimulation Used No Patient States Movement Yes: decreased from baseline - Results and Plan Plan: Patient is a 27-year-old -0-2-1 at 39 weeks 5 days gestation here for decreased movement and contractions. NST Performed 10/03/2020 NST Read 10/03/2020 FHT: 140 bpm baseline, moderate variability, accelerations present, no decelerations. Reactive NST [place]: Every 3 to 5 minutes Diagnosis 39 weeks gestation Decreased movement
== END 2022-10-04 13:45 | disposition home or self-care (01) | DRG 807 ==
LOC: WFO 02:47 → FBP 02:48 → WFO 05:04 → FBP 05:05
PROVIDERS: ADMIT Obstetrics & Gynecology; ATTEND Obstetrics & Gynecology
PROC: 10907ZC Drainage of Amniotic Fluid, Therapeutic from Products of Conception, Via Natural or Artificial Opening (ICD-10-PCS; principal; 2022-10-03)
PROC: 10E0XZZ Delivery of Products of Conception, External Approach (ICD-10-PCS; 2022-10-03)
DX: O77.0 Labor and delivery complicated by meconium in amniotic fluid (principal); Z37.0 Single live birth; Z3A.39 39 weeks gestation of pregnancy; O36.8130 Decreased fetal movements, third trimester, not applicable or unspecified; Z87.59 Personal history of other complications of pregnancy, childbirth and the puerperium
CPT/HCPCS: 59025; 84112; 85025; 86850; 86900; 86901; 99215; A9270; J7120